=== PATIENT | female | born 1990 | race Hispanic/Latino ===

== ENCOUNTER 2024-04-11 22:48 | Emergency (ER) | payer OTHER ==
[~2024-04-11] VITALS: Ht 157.5 cm; Wt 77.1 kg
[2024-04-11 22:49] VITALS: BP 132/91; PULSE 70; RESP 20
[2024-04-11] MEDS ORDERED: CYCL10TA16 PO (22:58)
[2024-04-11] MEDS: ACETAMINOPHEN 500 MG TABLET PO ONE (23:18)
[2024-04-11] MEDS: CYCLOBENZAPRINE HCL 10 MG TABLET PO ONE (23:18)
== END 2024-04-11 23:28 | disposition left against medical advice (07) ==
LOC: EDH 22:48
DX: S39.012A Strain of muscle, fascia and tendon of lower back, initial encounter (principal); V89.2XXA Person injured in unspecified motor-vehicle accident, traffic, initial encounter; Y93.I9 Activity, other involving external motion; Y92.488 Other paved roadways as the place of occurrence of the external cause; Y99.8 Other external cause status